=== PATIENT | male | born 1955 | race Caucasian/White ===

== ENCOUNTER 2018-03-07 16:48 | Observation (INO) ==
--- NOTE | 2018-03-07 17:13 | ED ---
HPI General Chief complaint: Extremity Problem,Nontraumatic Stated complaint: poss blood clots in R leg Time Seen by Provider: 03/07/18 17:08 Source: patient Mode of arrival: ambulatory Limitations: no limitations History of Present Illness HPI Narrative: 62-year-old male patient with history of CAD status post stenting presents to the ER today because he states that he has had recent diagnosis of cellulitis in his right leg, had been seen by his sales agent financial report service today after having taken a course of doxycycline, is still having ongoing redness and swelling. He denies any chest pains, shortness of breath, or any other symptoms. His sales agent financial report service sent him in to be evaluated for possible DVT. Related Data Home Medications Medication Instructions Recorded Confirmed amlodipine 5 mg PO BID 03/07/18 03/07/18 hydrochlorothiazide 12.5 mg PO DAILY 03/07/18 03/07/18 metoprolol tartrate 50 mg PO BID 03/07/18 03/07/18 Previous Rx's Medication Instructions Recorded doxycycline hyclate 100 mg PO BID 10 Days #20 tab 02/28/18 Allergies Allergy/AdvReac Type Severity Reaction Status Date / Time No Known Allergies Allergy Verified 03/07/18 17:03 Review of Systems ROS: all other systems reviewed are negative PMFSH History History Provided By: Patient Medical History Medical History Medical history unknown (Acute) Surgical History Surgical History Hx of heart artery stent (Acute) Social History Social History Substance History: No History of Abuse Second Hand Smoke Exposure: No Smoking Status: Former smoker Tobacco Type: Cigarettes How Often Do You Have a Drink Containing Alcohol: 4 or more times a week Exam Narrative Exam Narrative: GENERAL: Well-developed elderly white male patient currently in mild distress. Awake and oriented 3. SKIN: Focused skin assessment warm/dry. HEAD: Atraumatic. Normocephalic. EYES: Pupils equal and round. No scleral icterus. No injection or drainage. ENT: No nasal bleeding or discharge. Mucous membranes pink and moist. NECK: Trachea midline. No JVD. CARDIOVASCULAR: Regular rate and rhythm. No murmur appreciated. RESPIRATORY: No accessory muscle use. Clear to auscultation. Breath sounds equal bilaterally. GASTROINTESTINAL: Abdomen soft, non-tender, nondistended. Hepatic and splenic margins not palpable. MUSCULOSKELETAL: No obvious deformities. No clubbing. No cyanosis. There is notable pitting edema of both legs with the right worse than the left. Erythema and mild tenderness palpation of the right calf. NEUROLOGICAL: Awake and alert. No obvious cranial nerve deficits. Motor grossly within normal limits. Normal speech. PSYCHIATRIC: Appropriate mood and affect; insight and judgment normal. Course Initial Documented Vital Signs Temperature 98.8 F 03/07/18 17:01 Pulse Rate 75 03/07/18 17:01 Respiratory Rate 16 03/07/18 17:01 Blood Pressure 154/74 H 03/07/18 17:01 Pulse Oximetry 96 03/07/18 17:01 Last Documented Vital Signs Temperature 98.8 F 03/07/18 17:01 Pulse Rate 75 03/07/18 17:01 Respiratory Rate 16 03/07/18 17:01 Blood Pressure 154/74 H 03/07/18 17:01 Pulse Oximetry 96 03/07/18 17:01 Medical Decision Making MDM Narrative Medical decision making narrative: Show significant hyponatremia with absolute neutrophil counts of 1.1. He is afebrile in the ER. He does have ongoing cellulitis despite full treatment with doxycycline. No signs of DVT was found on ultrasound. At this point, I am fairly concerned about this patient's lack of improvement from cellulitis and IV antibiotics were initiated. My plan would be to admit him for further evaluation of his neutropenia as well as for cellulitis with failed outpatient therapy. Case is discussed with Dr. Lutz for admission. Medical Screen Exam Complete: Yes Emergency Medical Condition: Yes Differential Diagnosis Differential Diagnosis: Dependent edema versus cellulitis versus DVT Lab Data Lab results reviewed: Yes I reviewed the patient's lab results. Result diagrams: 03/07/18 17:20 03/07/18 17:20 Lab Results 03/07/18 03/07/18 03/07/18 Range/Units 17: 17: 17:20 CBC w Diff Slide review pending WBC 2.6 L (4.0-11.0) th/mm3 RBC 3.97 L (4.50-5.90) mil/mm3 Hgb 11.6 L (13.0-17.0) gm/dL Hct 33.7 L (39.0-51.0) % MCV 85.0 (80.0-100.0) fL MCH 29.3 (27.0-34.0) pg MCHC 34.5 (32.0-36.0) % RDW 16.5 (11.6-17.2) % Plt Count 363 (150-450) th/mm3 MPV 9.3 (7.0-11.0) fL Neut % (Auto) 38.7 (16.0-70.0) % Lymph % (Auto) 45.4 H (9.0-44.0) % [place] % (Auto) 14.6 H (0.0-8.0) % Eos % (Auto) 0.4 (0.0-4.0) % Baso % (Auto) 0.9 (0.0-2.0) % Neut # (Auto) 1.0 L (1.8-7.7) th/mm3 Lymph # (Auto) 1.2 (1.0-4.8) th/mm3 [place] # (Auto) 0.4 (0.0-0.9) th/mm3 Eos # (Auto) 0.0 (0.0-0.4) th/mm3 Baso # (Auto) 0.0 (0.0-0.2) th/mm3 WBC Differential Manual diff final Seg Neuts % (Manual) 40 (16-70) % Band Neuts % (Manual) 1 (0-6) % Lymphocytes % (Manual) 48 H (9-44) % Monocytes % (Manual) 10 H (0-8) % Basophils % (Manual) 1 (0-2) % Abs Neuts (Manual) 1.1 L (1.8-7.7) th/mm3 Nucleated RBCs/100 WBC 1 H (0-0) /100 WBC Differential Comment . Platelet Estimate Normal (Normal) Platelet Morphology Normal (Normal) PT 10.8 (9.8-11.6) sec INR 1.1 Ratio APTT 28.4 (24.3-30.1) sec Sodium 140 (136-145) meq/L Potassium 3.9 (3.5-5.1) meq/L Chloride 105 (98-107) meq/L Carbon Dioxide 27.9 (21.0-32.0) meq/L Anion Gap 7 (5-15) meq/L BUN 19 H (7-18) mg/dL Creatinine 1.10 (0.60-1.30) mg/dL Estimated GFR 67 L (>89) mL/min Random Glucose 118 H (74-106) mg/dL Calcium 9.0 (8.5-10.1) mg/dL Imaging Data Attestation: I personally reviewed and interpreted this imaging study as follows : Radiologist's impression: Venous Doppler Study 03/07/18 17:08 CONCLUSION: 1. The study is negative for bilateral lower extremity deep venous thrombosis. Discharge Plan Discharge Disposition Patient Disposition: 30 Still Patient Discharge Condition Condition: Stable Discharge Details Anticipated Discharge Date: 03/07/18 Diagnosis: Cellulitis of leg, Neutropenia Physicians Team ED Provider: Suma Mckinnon Primary Care Provider: Primary Care MistiiDemetria Rxs /Orders / Referrals /Forms Prescriptions: No Action amlodipine 5 mg Tablet 5 mg PO BID RF: 0 metoprolol tartrate 50 mg Tablet 50 mg PO BID RF: 0 hydrochlorothiazide 12.5 mg Tablet 12.5 mg PO DAILY RF: 0 doxycycline hyclate 100 mg tablet 100 mg PO BID 10 Days Qty: 20 RF: 0 Status ED Status: Admitted Patient
[2018-03-07 17:47] LABS: Potassium 3.9 meq/L (3.5-5.1)
[2018-03-07 17:50] LABS: Carbon Dioxide 27.9 meq/L (21.0-32.0)
[2018-03-07 17:53] LABS: Activated Partial Thrombo Time 28.4 sec (24.3-30.1); INR 1.1 Ratio; Prothrombin Time 10.8 sec (9.8-11.6)
[2018-03-07 17:57] LABS: Baso % (Auto) 0.9 % (0.0-2.0); Eos % (Auto) 0.4 % (0.0-4.0); Hematocrit 33.7 % (39.0-51.0); Hemoglobin 11.6 gm/dL (13.0-17.0); Lymph # (Auto) 1.2 th/mm3 (1.0-4.8); Lymph % (Auto) 45.4 % (9.0-44.0); Mean Corpuscular HGB Conc 34.5 % (32.0-36.0); Mean Corpuscular Hemoglobin 29.3 pg (27.0-34.0); Mean Platelet Volume 9.3 fL (7.0-11.0); Mono # (Auto) 0.4 th/mm3 (0.0-0.9); Mono % (Auto) 14.6 % (0.0-8.0); Neut % (Auto) 38.7 % (16.0-70.0); Platelet Count 363 th/mm3 (150-450); Red Blood Count 3.97 mil/mm3 (4.50-5.90); Red Cell Distribution Width 16.5 % (11.6-17.2); White Blood Count 2.6 th/mm3 (4.0-11.0)
[2018-03-07 18:16] LABS: Lymphocytes 48 % (9-44); Monocytes 10 % (0-8); Tallied Nucleated RBC 1 (0-0)
[2018-03-07 18:17] LABS: Platelet Estimate Normal (Normal); Platelet Morphology Normal (Normal)
--- NOTE | 2018-03-07 18:49 | US ---
EXAM DATE: 03/07/2018 6:26 PM EDT AGE/SEX: 62 years / Male INDICATIONS: Lower extremity pain and swelling. CLINICAL DATA: This is the patient's initial encounter. Patient reports that signs and symptoms have been present for 2 weeks and indicates a pain score of 8/10. MEDICAL/SURGICAL HISTORY: . Cellulitis of right leg. Hypertension. Former smoker. . Cardiac stent 1996. COMPARISON: No prior exams available for comparison. TECHNIQUE: Venous ultrasound of both lower extremities was performed from the inguinal ligament to t he proximal calf. Real-time, color Doppler and spectral tracing, compression and augmentation techni ques were used. FINDINGS: Right Leg: Normal compression of the deep venous system from the inguinal region to the proximal mimi f. No echogenic clot is seen. Normal response of the venous system to augmentation and respiration. Left Leg: Normal compression of the deep venous system from the inguinal region to the proximal calf . No echogenic clot is seen. Normal response of the venous system to augmentation and respiration. Other: None. CONCLUSION: 1. The study is negative for bilateral lower extremity deep venous thrombosis. Electronically signed by: Doug Tan MD 03/07/2018 6:47 PM EDT
[2018-03-07] MEDS ORDERED: Piperacil/Tazo 4.5 GM Premix 4.5 GM/100 ML BAG IV.SIG STA (18:51)
[2018-03-07] MEDS ORDERED: Vancomycin Inj 1,000 MG in Sodium Chlor 0.9% Inj 250 ML IV.SIG ONE (19:21)
[2018-03-07] MEDS ORDERED: Bisacodyl 10 MG Supp RECTAL PRN (19:21)
[2018-03-07] MEDS ORDERED: Vancomycin Consult Pharmacy OTHER PRN (19:21)
[2018-03-07] MEDS ORDERED: Acetaminophen 325 MG Tablet PO PRN (19:21)
[2018-03-08] MEDS: Piperacil/Tazo 3.375 GM Premix 50 ML IV.SIG SCH ×4 (02:48→20:10)
[2018-03-08 06:15] LABS: Baso % (Auto) 1.2 % (0.0-2.0); Hematocrit 32.1 % (39.0-51.0); Hemoglobin 11.2 gm/dL (13.0-17.0); Lymph # (Auto) 0.9 th/mm3 (1.0-4.8); Lymph % (Auto) 43.6 % (9.0-44.0); Mean Corpuscular HGB Conc 34.8 % (32.0-36.0); Mean Corpuscular Hemoglobin 29.7 pg (27.0-34.0); Mean Corpuscular Volume 85.4 fL (80.0-100.0); Mean Platelet Volume 9.6 fL (7.0-11.0); Mono # (Auto) 0.3 th/mm3 (0.0-0.9); Mono % (Auto) 13.8 % (0.0-8.0); Neut # (Auto) 0.8 th/mm3 (1.8-7.7); Neut % (Auto) 40.4 % (16.0-70.0); Platelet Count 297 th/mm3 (150-450); Red Blood Count 3.76 mil/mm3 (4.50-5.90); Red Cell Distribution Width 16.5 % (11.6-17.2)
[2018-03-08 06:21] LABS: Potassium 3.5 meq/L (3.5-5.1)
[2018-03-08 06:26] LABS: Calcium 8.4 mg/dL (8.5-10.1)
[2018-03-08 06:58] LABS: Lymphocytes 39 % (9-44); Monocytes 14 % (0-8); Platelet Estimate Normal (Normal); Platelet Morphology Normal (Normal); RBC Morphology Normal (Normal)
[2018-03-08] MEDS: Senna/Docusate Sodium 8.6/50 MG Tablet PO SCH ×3 (08:21→20:09)
--- NOTE | 2018-03-08 10:59 | P.HP ---
History of Present Illness Primary Care Physician: No Primary Care Physician Chief Complaint: Right leg pain History of Present Illness: This is a 62-year-old male with a history of coronary artery disease status post stent, hypertension and hepatitis C status post treatment. Started 3 weeks ago when he noted right lower extremity swelling and redness. He was seen in the emergency room about a week ago and was prescribed doxycycline. At that time he also complained of pain. No fever or chills. No recent salt water exposure. He did not improve and was evaluated by a admissions counselor yesterday and took a biopsy from the lesions on the left thigh and left leg and a swab on the right leg. He was then advised to present to the emergency department to recheck for DVT which was negative but was recommended hospitalization because of failed outpatient treatment with persistent redness, swelling and pain especially on the right leg. No recent trauma. No history of diabetes mellitus. Today, he feels much better with improved redness, swelling and pain. All other systems reviewed negative Review of Systems All other systems reviewed negative except as stated in HPI PMFSH - History History Provided By: Patient - Medical History Medical History: Medical History (Last Updated 03/08/18 @ 11:05 by Mark Holguin MD) HTN (hypertension) Medical history unknown - Surgical History Surgical History: Surgical History (Last Reviewed 03/08/18 @ 11:05 by Mark Holguin MD) Hx of heart artery stent - Family History Family History: Family History (Last Updated 03/08/18 @ 11:05 by Mark Holguin MD) Other No pertinent family history - Tobacco History Second Hand Smoke Exposure: No Tobacco Use In Past 30 Days: No Smoking Status: Former smoker Tobacco Type: Cigarettes - Alcohol History How Often Do You Have a Drink Containing Alcohol: 2 to 3 times a week - Substance Use History Substance History: No History of Abuse - Immunization History Tetanus Immunization: >5 Years Hx Influenza Vaccine This Season: No Medications and Allergies Active Medications: Active Medications Acetaminophen (Tylenol) 650 mg PO Q4H PRN PRN Reason: Temp > 100.4 Al Hydroxide/Mg Hydroxide (Milk Of Magnjulio Liq) 30 ml PO Q12H PRN PRN Reason: Mild Constipation Amlodipine Besylate (Norvasc) 5 mg PO BID [facility] Bisacodyl (Dulcolax Supp) 10 mg RECTAL DAILY PRN PRN Reason: SEVERE CONSITIPATION Hydrochlorothiazide (Microzide) 12.5 mg PO DAILY [facility] Piperacillin/Tazobactam/Dextrose (Zosyn 3.375 Gm Premix) 50 mls @ 100 mls/hr IV.SIG Q6H [facility] Last Infusion: 03/08/18 08:45 Dose: Infused Vancomycin HCl 1,600 mg/ (Sodium Chloride) 516 mls @ 250 mls/hr IV.SIG Q24H [facility] Lactulose (Lactulose Liq) 30 ml PO DAILY PRN PRN Reason: SEVERE CONSITIPATION Metoprolol Tartrate (Lopressor) 50 mg PO BID [facility] Miscellaneous Information ([facility] Ordered Lab Info) 1 each OTHER ONCE ONE Stop: 03/11/18 10:46 Ondansetron HCl (Zofran Inj) 4 mg IV.PUSH Q6H PRN PRN Reason: NAUSEA OR VOMITING Pharmacy Profile Note (Vancomycin Consult Pharmacy) 1 each OTHER UNSCH PRN PRN Reason: Pharmacy to dose Potassium Chloride (K-Dur) 20 meq PO ONCE ONE Stop: 03/08/18 11:01 Senna/Docusate Sodium (Paloma-Colace) 1 tab PO BID [facility] Last Admin: 03/08/18 10:36 Dose: 1 tab Sennosides (Senokot) 17.2 mg PO Q12H PRN PRN Reason: Moderate Constipation Allergies Allergy/AdvReac Type Severity Reaction Status Date / Time No Known Allergies Allergy Verified 03/07/18 17:03 Home Medications Medication Instructions Recorded Confirmed Type hydrochlorothiazide 12.5 mg PO DAILY 03/07/18 03/07/18 History metoprolol tartrate 50 mg PO BID 03/07/18 03/07/18 History losartan 50 mg PO BID 03/08/18 03/08/18 History Exam Vital signs: Vital Signs 03/07/18 17:01 03/07/18 22:00 03/07/18 22:17 Temperature 98.8 F 96.7 F L Pulse Rate 75 65 79 Respiratory Rate 16 20 Blood Pressure 154/74 H 159/71 H Pulse Oximetry 96 99 03/08/18 04:00 03/08/18 08:00 Temperature 96 F L 97.0 F L Pulse Rate 70 Respiratory Rate 20 21 Blood Pressure 123/60 138/67 Pulse Oximetry 97 95 Intake & Output 03/07/18 03/08/18 03/08/18 18:59 06:59 18:59 Intake Total 640 / 640 50 / 50 Balance 640 / 640 50 / 50 Weight 85 kg 77.3 kg Intake: IV 400 / 400 50 / 50 Zosyn 3.375 GM Premix 50 ML @ 50 / 50 50 / 50 100 mls/hr IV.SIG Q6H [facility] Rx#: [id number] Zosyn 4.5 GM Premix 4.5 gm In 100 / 100 100 ml @ 200 mls/hr IV.SIG STAT STA Rx#:[id number] Vancomycin Inj 1,000 MG In NS 250 / 250 Inj 250 ML @ 250 mls/hr IV.SIG ONCE ONE Rx#:[id number] Oral 240 / 240 Other: # Voids 1 Date of Last Bowel Movement 03/07/18 # Bowel Movements 0 Weight On Admission 79.2 kg Narrative: GENERAL: Well-developed, well-nourished in no distress SKIN: Warm and dry. Improved erythema and swelling especially of the right lower extremity. Scaling noted in both lower extremities. Biopsy sites on the left thigh and left leg with no signs of infection or active bleeding. HEAD: Atraumatic. Normocephalic. EYES: Pupils equal and round. No scleral icterus. No injection or drainage. ENT: No nasal bleeding or discharge. Mucous membranes pink and moist. NECK: Trachea midline. No JVD. CARDIOVASCULAR: Regular rate and rhythm. RESPIRATORY: No accessory muscle use. Clear to auscultation. Breath sounds equal bilaterally. GASTROINTESTINAL: Abdomen soft, non-tender, nondistended. MUSCULOSKELETAL: Extremities without clubbing, cyanosis. No obvious deformities. NEUROLOGICAL: Awake and alert. No obvious cranial nerve deficits. Motor grossly within normal limits. Five out of 5 muscle strength in the arms and legs. Normal speech. PSYCHIATRIC: Appropriate mood and affect; insight and judgment normal. Results - Labs CBC & Chem 7: 03/08/18 04:40 03/08/18 04:40 Labs: Laboratory Results - last 24 hr 03/07/18 03/07/18 03/07/18 17:20 17:20 17:20 CBC w Diff Slide review pending WBC 2.6 L RBC 3.97 L Hgb 11.6 L Hct 33.7 L MCV 85.0 MCH 29.3 MCHC 34.5 RDW 16.5 Plt Count 363 MPV 9.3 Neut % (Auto) 38.7 Lymph % (Auto) 45.4 H [place] % (Auto) 14.6 H Eos % (Auto) 0.4 Baso % (Auto) 0.9 Neut # (Auto) 1.0 L Lymph # (Auto) 1.2 [place] # (Auto) 0.4 Eos # (Auto) 0.0 Baso # (Auto) 0.0 WBC Differential Manual diff final Seg Neuts % (Manual) 40 Band Neuts % (Manual) 1 Lymphocytes % (Manual) 48 H Monocytes % (Manual) 10 H Basophils % (Manual) 1 Abs Neuts (Manual) 1.1 L Nucleated RBCs/100 WBC 1 H Differential Comment . Platelet Estimate Normal Platelet Morphology Normal RBC Morphology PT 10.8 INR 1.1 APTT 28.4 Sodium 140 Potassium 3.9 Chloride 105 Carbon Dioxide 27.9 Anion Gap 7 BUN 19 H Creatinine 1.10 Estimated GFR 67 L Random Glucose 118 H Calcium 9.0 03/08/18 03/08/18 04:40 04:40 CBC w Diff Slide review pending WBC 2.0 L RBC 3.76 L Hgb 11.2 L Hct 32.1 L MCV 85.4 MCH 29.7 MCHC 34.8 RDW 16.5 Plt Count 297 MPV 9.6 Neut % (Auto) 40.4 Lymph % (Auto) 43.6 [place] % (Auto) 13.8 H Eos % (Auto) 1.0 Baso % (Auto) 1.2 Neut # (Auto) 0.8 L Lymph # (Auto) 0.9 L [place] # (Auto) 0.3 Eos # (Auto) 0.0 Baso # (Auto) 0.0 WBC Differential Manual diff final Seg Neuts % (Manual) 46 Band Neuts % (Manual) Lymphocytes % (Manual) 39 Monocytes % (Manual) 14 H Basophils % (Manual) 1 Abs Neuts (Manual) 0.9 L Nucleated RBCs/100 WBC Differential Comment . Platelet Estimate Normal Platelet Morphology Normal RBC Morphology Normal PT INR APTT Sodium 142 Potassium 3.5 Chloride 106 Carbon Dioxide 27.0 Anion Gap 9 BUN 17 Creatinine 1.10 Estimated GFR 67 L Random Glucose 128 H Calcium 8.4 L - Imaging Impressions Venous Doppler Study 03/07/18 17:08 CONCLUSION: 1. The study is negative for bilateral lower extremity deep venous thrombosis. Caprini VTE Risk Assessment Caprini VTE Risk Assessment: Moderate/High Risk (score >= 2) Caprini Risk Assessment Model: Point Value = 1 Point Value = 2 Point Value = 3 Point Value = 5 Age 41-60 Minor surgery BMI > 25 kg/m2 Swollen legs Varicose veins or History of unexplained or recurrent spontaneous Oral contraceptives or hormone replacement Sepsis (< 1 month) Serious lung disease, including pneumonia (< 1 month) Abnormal pulmonary function Acute myocardial infarction Congestive heart failure (< 1 month) History of inflammatory bowel disease Medical patient at bed rest Age 61-74 Arthroscopic surgery Major open surgery (> 45 min) Laparoscopic surgery (> 45 min) Malignancy Confined to bed (> 72 hours) Immobilizing plaster cast Central venous access Age >= 75 History of VTE Family history of VTE Factor V Leiden Prothrombin [id number] Lupus anticoagulant Anticardiolipin antibodies Elevated serum homocysteine Heparin-induced thrombocytopenia Other congenital or acquired thrombophilia Stroke (< 1 month) Elective arthroplasty Hip, pelvis, or leg fracture Acute spinal cord injury (< 1 month) Prophylaxis Regimen: Total Risk Factor Score Risk Level Prophylaxis Regimen 0-1 Low Early ambulation 2 Moderate Order ONE of the following: *Sequential Compression Device (SCD) *Heparin 5000 units SQ BID 3-4 Higher Order ONE of the following medications: *Heparin 5000 units SQ TID *Enoxaparin/Lovenox 40 mg SQ daily (WT < 150 kg, CrCl > 30 mL/min) *Enoxaparin/Lovenox 30 mg SQ daily (WT < 150 kg, CrCl > 10-29 mL/min) *Enoxaparin/Lovenox 30 mg SQ BID (WT < 150 kg, CrCl > 30 mL/min) AND/OR *Sequential Compression Device (SCD) 5 or more Highest Order ONE of the following medications: *Heparin 5000 units SQ TID (Preferred with Epidurals) *Enoxaparin/Lovenox 40 mg SQ daily (WT < 150 kg, CrCl > 30 mL/min) *Enoxaparin/Lovenox 30 mg SQ daily (WT < 150 kg, CrCl > 10-29 mL/min) *Enoxaparin/Lovenox 30 mg SQ BID (WT < 150 kg, CrCl > 30 mL/min) AND *Sequential Compression Device (SCD) Assessment and Plan - Plan This is a 62-year-old male with a history of coronary artery disease status post stent, hypertension and hepatitis C status post treatment. He presents to the emergency department with persistent right lower extremity pain, swelling and redness despite on doxycycline. Doppler sonogram showed no DVT. Bilateral lower extremity cellulitis right worse than the left. Failed outpatient therapy. He is improving continue current treatment with IV vancomycin and Zosyn will consider switching to Augmentin and Bactrim tomorrow. Leg elevation follow-up culture and biopsy from patient's admissions counselor Leukopenia and anemia with history of hepatitis C. This could also be related to infection and doxycycline. Will monitor DVT prophylaxis with subcu heparin Discharge Planning: Discharge in 1-2 days
[2018-03-08] MEDS ORDERED: Vancomycin Inj 1,600 MG in Sodium Chlor 0.9% Inj 500 ML IV.SIG SCH (11:00)
[2018-03-08] MEDS ORDERED: amLODIPine 5 MG Tablet PO SCH (11:00)
[2018-03-08] MEDS: Heparin - SQ 10,000 UNITS/ML Vial SQ SCH (20:10)
[2018-03-08] MEDS: Metoprolol Tartrate 50 MG Tablet PO SCH (20:11)
[2018-03-09] MEDS: Piperacil/Tazo 3.375 GM Premix 50 ML IV.SIG SCH ×2 (01:20→07:52)
[2018-03-09] MEDS: Heparin - SQ 10,000 UNITS/ML Vial SQ SCH (08:21)
[2018-03-09] MEDS: Senna/Docusate Sodium 8.6/50 MG Tablet PO SCH (08:23)
[2018-03-09] MEDS: Metoprolol Tartrate 50 MG Tablet PO SCH (08:23)
[2018-03-09 08:44] LABS: Eos % (Auto) 1.6 % (0.0-4.0); Hematocrit 34.4 % (39.0-51.0); Hemoglobin 11.6 gm/dL (13.0-17.0); Lymph % (Auto) 46.7 % (9.0-44.0); Mean Corpuscular HGB Conc 33.8 % (32.0-36.0); Mean Corpuscular Hemoglobin 30.2 pg (27.0-34.0); Mean Corpuscular Volume 89.3 fL (80.0-100.0); Mean Platelet Volume 9.4 fL (7.0-11.0); Mono # (Auto) 0.3 th/mm3 (0.0-0.9); Mono % (Auto) 12.1 % (0.0-8.0); Neut # (Auto) 0.9 th/mm3 (1.8-7.7); Neut % (Auto) 39.6 % (16.0-70.0); Platelet Count 307 th/mm3 (150-450); Red Blood Count 3.85 mil/mm3 (4.50-5.90); Red Cell Distribution Width 16.2 % (11.6-17.2); White Blood Count 2.2 th/mm3 (4.0-11.0)
[2018-03-09 08:52] LABS: Potassium 4.3 meq/L (3.5-5.1)
[2018-03-09 08:57] LABS: Calcium 8.8 mg/dL (8.5-10.1)
[2018-03-09 08:58] LABS: Carbon Dioxide 23.1 meq/L (21.0-32.0)
[2018-03-09 09:05] VITALS: RESP 16
--- NOTE | 2018-03-09 09:32 | P.PN ---
Subjective Interval history: Follow-up cellulitis lower extremity. Patient doing okay wants to go home today. Physical Exam Vital signs: Vital Signs 03/08/18 12:00 03/08/18 16:00 03/08/18 20:00 Temperature 97.1 F L 97.2 F L 97.6 F Pulse Rate 52 L 60 71 Respiratory Rate 20 19 20 Blood Pressure 116/69 131/85 140/68 Pulse Oximetry 95 96 95 03/09/18 00:00 03/09/18 04:00 03/09/18 07:57 Temperature 97.1 F L 97 F L Pulse Rate 66 63 73 Respiratory Rate 20 20 Blood Pressure 133/69 132/71 Pulse Oximetry 97 98 03/09/18 08:00 Temperature 97.6 F Pulse Rate 75 Respiratory Rate 16 Blood Pressure 150/70 H Pulse Oximetry 92 L Intake & Output 03/08/18 03/09/18 03/09/18 18:59 06:59 18:59 Intake Total 856 / 856 1300 / 1300 50 / 50 Output Total 401 / 401 Balance 455 / 455 1300 / 1300 50 / 50 Weight 77.4 kg Intake: IV 616 / 616 100 / 100 50 / 50 Zosyn 3.375 GM Premix 50 ML @ 100 / 100 100 / 100 50 / 50 100 mls/hr IV.SIG Q6H [facility] Rx#: [id number] Vancomycin Inj 1,600 MG In NS 516 / 516 Inj 500 ML @ 250 mls/hr IV.SIG Q24H [facility] Rx#:[id number] Oral 240 / 240 1200 / 1200 Output: Urine 400 / 400 Stool Other: # Voids 3 Date of Last Bowel Movement 03/08/18 03/08/18 03/08/18 Narrative: GENERAL: Well-developed, well-nourished in no distress SKIN: Warm and dry. Improved erythema and swelling especially of the right lower extremity. Scaling noted in both lower extremities. Biopsy sites on the left thigh and left leg with no signs of infection or active bleeding. CARDIOVASCULAR: Regular rate and rhythm. RESPIRATORY: No accessory muscle use. Clear to auscultation. Breath sounds equal bilaterally. GASTROINTESTINAL: Abdomen soft, non-tender, nondistended. MUSCULOSKELETAL: Extremities without clubbing, cyanosis. No obvious deformities. NEUROLOGICAL: Awake and alert. No obvious cranial nerve deficits. Motor grossly within normal limits. Five out of 5 muscle strength in the arms and legs. Normal speech. Results - Labs CBC & Chem 7: 03/09/18 07:56 03/09/18 07:56 Laboratory Results - last 24 hr 03/09/18 03/09/18 07:56 07:56 CBC w Diff Slide review pending WBC 2.2 L RBC 3.85 L Hgb 11.6 L Hct 34.4 L MCV 89.3 D MCH 30.2 MCHC 33.8 RDW 16.2 Plt Count 307 MPV 9.4 Neut % (Auto) 39.6 Lymph % (Auto) 46.7 H [place] % (Auto) 12.1 H Eos % (Auto) 1.6 Baso % (Auto) 0.0 Neut # (Auto) 0.9 L Lymph # (Auto) 1.0 [place] # (Auto) 0.3 Eos # (Auto) 0.0 Baso # (Auto) 0.0 Differential Comment . Sodium 139 Potassium 4.3 D Chloride 108 H Carbon Dioxide 23.1 Anion Gap 8 BUN 16 Creatinine 1.10 Estimated GFR 67 L Random Glucose 112 H Calcium 8.8 Magnesium 2.0 Microbiology 03/07/18 17:25 Blood - Peripheral Aerobic Blood Culture - Preliminary No growth in 1 day 03/07/18 17:25 Blood - Peripheral Anaerobic Blood Culture - Preliminary No growth in 1 day 03/07/18 17:20 Blood - Peripheral Aerobic Blood Culture - Preliminary No growth in 1 day 03/07/18 17:20 Blood - Peripheral Anaerobic Blood Culture - Preliminary No growth in 1 day - Imaging ITS Impressions Venous Doppler Study 03/07/18 17:08 CONCLUSION: 1. The study is negative for bilateral lower extremity deep venous thrombosis. - Procedures none Assessment and Plan - Plan This is a 62-year-old male with a history of coronary artery disease status post stent, hypertension and hepatitis C status post treatment. He presents to the emergency department with persistent right lower extremity pain, swelling and redness despite on doxycycline. Doppler sonogram showed no DVT. Bilateral lower extremity cellulitis right worse than the left. Failed outpatient therapy. Much improved start Augmentin and Bactrim discontinue IV vancomycin and Zosyn. Leg elevation follow-up culture and biopsy from patient' s mail carrier technician Leukopenia and anemia with history of hepatitis C. This could also be related to infection and doxycycline. Improving. Neutropenic precautions. Will monitor DVT prophylaxis with subcu heparin Discharge Planning: Discharge patient to home Condition on discharge: Improved Regular Diet as tolerated Ad Amy activity Rx written: Augmentin and Bactrim Follow-up with primary care physician and dermatology. Repeat CBC and BMP March 11, 2018
[2018-03-09] MEDS ORDERED: Amoxicillin/Clavulanate 875/125 MG Tablet PO SCH (10:00)
[2018-03-09 12:31] VITALS: BP 127/69; PULSE 63; TEMP 97.7; O2SAT 96
[2018-03-11] MEDS ORDERED: Pharmacy Ordered Lab Info OTHER ONE (10:45)
== END 2018-03-09 13:23 | disposition home or self-care (01) ==
LOC: PHEDA 16:48 → PHED 16:48 → PH3 21:52
PROVIDERS: ADMIT Internal Medicine; ATTEND Internal Medicine